=== PATIENT | female | born 1945 | race Caucasian/White ===

== ENCOUNTER → 2016-11-21 | Outpatient (CLI) | payer OTHER ==
[~2016-11-21] MED LIST: ASPIRIN325 PO; BYSTOLIC 5 MG5 M1 PO; CALCIUM 600 +1 EAC1 PO; CRESTOR10 MG PO; LOPRESSOR25 PO; MIRAPEX1 MG PO; MULTIVITAMIN W1 EAC5 PO; MULTIVITAMINS1 EAC7 PO; NEXIUM40 MG PO; NORVASC 5 MG TAB5 MG PO; PRAVASTATIN SOD10 MG PO; RELAFEN500 MG PO
== END ==
LOC: ULTRA 03:49 → RAD 03:49 → BC 03:49
DX: N63 Unspecified lump in breast (principal)

== ENCOUNTER → 2017-02-27 | Outpatient (CLI) | payer OTHER | LOC: RAD 01:34 | DX: R92.2 Inconclusive mammogram (principal) ==

== ENCOUNTER → 2017-08-30 | Outpatient (CLI) | payer OTHER | LOC: ULTRA 08:58 | DX: R92.2 Inconclusive mammogram (principal) ==

== ENCOUNTER → 2019-03-03 | Outpatient (CLI) | payer OTHER | LOC: BC 15:23 | DX: N60.02 Solitary cyst of left breast (principal); N63.10 Unspecified lump in the right breast, unspecified quadrant ==

== ENCOUNTER → 2019-03-07 | Outpatient (CLI) | payer OTHER ==
--- NOTE | 2019-03-11 16:06 | PATH ---
[facility] [address] [place] [address] PATHOLOGY RPT PROCEDURE Name: ZACKERY POSADA Cedrick Room #: REG [facility]..#: [id number] ������������������ Admission: 03/07/19 ������������������ Date of : 45 Discharge: Report #: [id number] Path Case #: [id number] LCA Accession Number: [id number] . 01 Material submitted: . breast - LT BREAST 2:00, 3 CM FN. Modifiers: left, 2:00, 3 CM FN . 01 Clinical history: . Left breast mass . 02 Diagnosis: Breast, left breast 2:00, 3 cm from nipple, needle core biopsy: - Moderate dense chronic inflammation surrounding breast ducts, compatible with mastitis. - Stromal fibrosis associated with macrophages and abundant plasma cells, compatible with reparative changes forming a mass-like lesion measuring approximately 4 mm in greatest dimension in a single core in contiguous length (please see comment). - Background breast tissue showing non-proliferative fibrocystic changes. (IUV:talent development specialist; 03/11/2019) MBR/03/11/2019 . 02 Comment: Examination shows fat necrosis, extravasated red cells, abundant chronic inflammation predominantly comprised of plasma cells in addition to hemosiderin-laden macrophages as well as dense chronic inflammation surrounding the ducts. Findings are consistent with reparative changes. Immunohistochemical stains are performed on block A2 and included CD45, AE1/AE3, E-cadherin, and CD68. The inflammatory process shows reactivity with CD45 and CD68. AE1/AE3 is reactive within the background ducts, and none of these cells within the infiltrate (single cells). E-cadherin is nonreactive within these cells as well. Findings support a reparative process. . Co-review: Dr. Darci Perez. . (IUV:talent development specialist; 03/11/2019) . 02 Electronically signed: . Zaira Melendez MD, Pathologist NPI- [id number] . 01 Gross description: . The specimen is received in formalin, labeled "Zackery Posada, left breast biopsy 2:00 3 cm from nipple". Received are multiple needle cores of fibrofatty tissue measuring 2.2 x 1.8 x 0.3 cm in aggregate dimensions. The specimen is submitted entirely in cassettes A1 through A3. The [address] [address] PATHOLOGY RPT PROCEDURE Name: ZACKERY POSADA Cedrick [facility] [id number] ������������������ Admission: 03/07/19 ������������������ Date of : 45 Discharge: Report #: [id number] Path Case #: [id number] ischemic time is 10 minutes. The total formalin fixation time is 11 hours. (CAA; 03/07/2019) QAC/QAC . 02 Pathologist provided ICD-10: N61.0, N60.32, N60.12 . 02 CPT . 140976, L41503, X35031 Specimen Comment: A courtesy copy of this report has been sent to Specimen Comment: [phone]. Specimen Comment: Report sent to Performed at: [address], [place] [id number] MD Adrian Kat MD Phone: [phone] Performed at: [address] [id number] MD Zaira Melendez MD Phone: [phone]
== END | disposition home or self-care (01) ==
LOC: ULTRA 09:29 → RAD 09:29 → ULTRA 16:22
DX: N60.32 Fibrosclerosis of left breast (principal); R92.0 Mammographic microcalcification found on diagnostic imaging of breast; N61.0 Mastitis without abscess

== ENCOUNTER → 2019-05-07 | Outpatient (CLI) | payer OTHER | LOC: RAD 11:17 | DX: M47.26 Other spondylosis with radiculopathy, lumbar region (principal); M41.86 Other forms of scoliosis, lumbar region; M51.17 Intervertebral disc disorders with radiculopathy, lumbosacral region; M43.8X4 Other specified deforming dorsopathies, thoracic region ==

== ENCOUNTER → 2019-05-19 | Outpatient (CLI) | payer OTHER | LOC: MRI 06:47 | DX: M47.814 Spondylosis without myelopathy or radiculopathy, thoracic region (principal); M51.24 Other intervertebral disc displacement, thoracic region; M50.20 Other cervical disc displacement, unspecified cervical region ==

== ENCOUNTER → 2019-06-26 | Outpatient (CLI) | payer OTHER | LOC: MRI 06-16 10:44 | DX: M47.22 Other spondylosis with radiculopathy, cervical region (principal); M47.26 Other spondylosis with radiculopathy, lumbar region; M25.78 Osteophyte, vertebrae; M12.88 Other specific arthropathies, not elsewhere classified, other specified site; M48.02 Spinal stenosis, cervical region; M51.16 Intervertebral disc disorders with radiculopathy, lumbar region; M48.062 Spinal stenosis, lumbar region with neurogenic claudication; M51.17 Intervertebral disc disorders with radiculopathy, lumbosacral region ==

== ENCOUNTER → 2020-04-30 | Outpatient (CLI) | payer OTHER | LOC: SJCVC 10:22 | PROVIDERS: ATTEND Internal Medicine Cardiovascular Disease | DX: I49.9 Cardiac arrhythmia, unspecified (principal); I10 Essential (primary) hypertension; E78.00 Pure hypercholesterolemia, unspecified; E11.9 Type 2 diabetes mellitus without complications; E78.5 Hyperlipidemia, unspecified; E66.01 Morbid (severe) obesity due to excess calories; Z68.41 Body mass index [BMI] 40.0-44.9, adult; Z79.899 Other long term (current) drug therapy ==

== ENCOUNTER → 2020-05-03 | Outpatient (CLI) | payer OTHER | LOC: SJCVCIMAG 09:58 | PROVIDERS: ATTEND Internal Medicine Cardiovascular Disease | DX: I08.1 Rheumatic disorders of both mitral and tricuspid valves (principal); E66.9 Obesity, unspecified ==

== ENCOUNTER → 2020-05-05 | Outpatient (CLI) | payer OTHER | LOC: SJCVCIMAG 10:20 | PROVIDERS: ATTEND Internal Medicine Cardiovascular Disease | DX: R07.9 Chest pain, unspecified (principal); R06.09 Other forms of dyspnea; I10 Essential (primary) hypertension; E78.00 Pure hypercholesterolemia, unspecified; E11.9 Type 2 diabetes mellitus without complications; E78.5 Hyperlipidemia, unspecified; E66.01 Morbid (severe) obesity due to excess calories; Z68.41 Body mass index [BMI] 40.0-44.9, adult; Z79.899 Other long term (current) drug therapy; Z88.8 Allergy status to other drugs, medicaments and biological substances ==

== ENCOUNTER → 2020-05-24 | Outpatient (CLI) | payer OTHER | LOC: CAT 08:56 | PROVIDERS: ATTEND Neuromusculoskeletal Medicine & OMM | DX: Z13.6 Encounter for screening for cardiovascular disorders (principal); I25.10 Atherosclerotic heart disease of native coronary artery without angina pectoris; E78.00 Pure hypercholesterolemia, unspecified ==

== ENCOUNTER → 2020-06-03 | Outpatient (CLI) | payer OTHER ==
[~2020-06-03] MED LIST changes: +ASPIR 8181 MG PO; +BRILINTA90 MG PO; +LIPITOR40 MG PO; +NEURONTIN 300M300 M2 PO
== END ==
LOC: SJCVC 13:06
PROVIDERS: ATTEND Internal Medicine Cardiovascular Disease
DX: I49.9 Cardiac arrhythmia, unspecified (principal); I10 Essential (primary) hypertension; E78.00 Pure hypercholesterolemia, unspecified; R60.9 Edema, unspecified; I25.10 Atherosclerotic heart disease of native coronary artery without angina pectoris; E11.9 Type 2 diabetes mellitus without complications; Z79.899 Other long term (current) drug therapy

== ENCOUNTER 2020-06-08 06:35 | Observation (INO) | payer OTHER ==
[2020-06-08] VITALS (14 sets, daily range): BP systolic 111–158; BP diastolic 35–70
[~2020-06-08] VITALS: Ht 165.1 cm; Wt 117.9 kg
[~2020-06-08 06:35] MED LIST changes: -ASPIR 8181 MG PO; -BRILINTA90 MG PO; -LIPITOR40 MG PO; -NEURONTIN 300M300 M2 PO
[2020-06-08 07:37] LABS: HEMATOCRIT 39.4 % (37.0-47.0); HEMOGLOBIN 13.1 gm/dL (12.0-15.0); MCH 31.4 pg (26.0-34.0); MCHC 33.2 g/dL (28.0-37.0); MCV 94.5 fL (80.0-100.0); RBC 4.16 mil/uL (4.20-5.00); RDW 14.5 % (10.5-14.5); WBC 6.3 thou/uL (4.0-11.0)
[2020-06-08 08:31] LABS: CREATININE 0.9 mg/dL (0.6-1.0); POTASSIUM 3.9 mmol/L (3.5-5.1)
--- NOTE | 2020-06-08 12:46 | NUR ---
PT ARRIVED FROM SUPERVISOR CORDUROY CUTTING BY CATH STAFF. R RADIAL WITH PRESSURE DRESSING. RELEASING PRESSURE PER PROTOTCOL. TELE MONITOR PUT ON. POST CATH VSS INITIATED. PT UP AD CRYS TOLERATING WELL. DENIES PAIN. WILL MONITOR. TELE STRIP PRINTED AND DOCUMENTED.
--- NOTE | 2020-06-08 14:01 | EKG ---
[facility] [address] [place] [address] ELECTROCARDIOGRAM REPORT Name: ZACKERY WALTON Room #: 204-P [facility] M.R.#: [id number] Admission: 06/08/20 Attend Phys: Del Tao MD Discharge: Date of : 45 Report #: [id number] THIS REPORT FOR: cc: Rolando Louis,Ludwin Samano MD [facility] ~ THIS REPORT FOR: //name// [facility] Test Date: 2020-06-08 Test Time: 11:20:00 Pat Name: ZACKERY WALTON Department: Room: 204 Gender: F Community Service Worker: ANGELO : 1945 Requested By: Del Tao Order Number: [id number] MD: Ludwni Ventura Measurements Intervals [place] Rate: 60 P: 49 DC: 185 QRS: 27 QRSD: 92 T: -28 QT: 428 QTc: 428 Interpretive Statements Sinus arrhythmia ST segment abnormality Compared to ECG 03/31/2016 07:59:32 ST segment abnormality is now present Atrial premature complex(es) no longer present Electronically Signed On 06-08-2020 14:01:03 CDT by Ludwin Ventura [email or web address] <ELECTRONICALLY SIGNED> By: Ludwin Ventura MD, [facility] 06/08/20 1401 1120 1120 Ludwin Ventura MD, [facility] /EPI
--- NOTE | 2020-06-08 14:24 | CATHLAB ---
[facility] [address] [place] [address] INVASIVE PROCEDURE REPORT Name: ZACKERY WALTON Room #: 204-P [facility] M.R.#: [id number] Admission: 06/08/20 Attend Phys: Del Tao MD Discharge: Date of : 45 Report #: [id number] THIS REPORT FOR: cc: Rolando Louis Steven F. DO Park, Jin S. MD ~ APPROVED REPORT Study performed: 06/08/2020 08:42:56 Patient Details The patient is a 75 year-old female Event Personnel Del Tao Software Test Specialist, Sanjeev Valdivia RN RN, Eliecer Byrd RTR CelsaubShanta Jordan RTR Monitor, Siobhan Finnegan RN RN, Zakiya Maria RTR, SUPERINTENDENT LOGGING Monitor Procedures Performed Art Access - R radial artery ANIA Place w/wo Plasty Single DIAG 694077 80105 Initial Mod Sed Same Phys/QHP Gr 097155 28195 Mod Sed Same Phys/QHP Ea 528793 Hemostasis with Hemoband Indication Dyspnea, Unstable angina , Chest pain Risk Factors Hypercholesterolemia, Coronary Artery DiseaseHypertension Procedure Narrative The Right Wrist^ was infiltrated with 1% Lidocaine subcutaneous anesthesia. A TRANSRADIAL SLENDER 6F GLIDESHEATH KIT #[id number] sheath was inserted into the Right Radial Artery^. Coronary angiography was performed using coronary diagnostic catheters. The right coronary system was accessed and visualized with a 5FR JR 4 #[id number] catheter. The left coronary system was accessed and visualized with a 5FR JL 3.5 #190041 catheter. The left ventricle was accessed and visualized with a 5FR JR 4 #[id number] catheter. Closure device was deployed with a Fr VASC BAND L 27CM #[id number]. The patient tolerated the procedure well and there were no complications associated with the procedure. There was no hematoma. Intraoperative Conscious Sedation Sedation start time: 849 Case end Time: [facility] [address] [place] [address] INVASIVE PROCEDURE REPORT Name: ZACKERY WALTON ANN Room #: 204-P [facility] IN .R.#: [id number] Admission: 06/08/20 Attend Phys: Del Tao MD Discharge: Date of : 45 Report #: [id number] Fentanyl 75 mcg Versed 1.5 mg Fluoro Time: 24.90 minutes Dose: DAP 32218.90 cGycm2 7569 mGy Contrast Type and Amount: Visipaque 310 ml Coronary Angiography The patient's coronary anatomy is right dominant. Diagnostic Cath Left Main The left main artery is a large-caliber vessel, with no flow-limiting lesions. LAD The LAD has a severe stenosis in the proximal/mid segment, 80% with calcifications. After the stenosis, the remaining segments of the LAD is widely patent. Diagonal 1 There is a small to moderate-sized caliber vessel, with no flow-limiting lesions. Diagonal 2 This is a larger vessel than the first diagonal artery and has a severe occlusion in the proximal segment. Circumflex Supplies 1 moderate-sized OM vessel. OM1 This is a moderate-sized vessel with mild disease proximally. Supplies several branches as it travels down the lateral wall. Right Coronary This is a dominant vessel with mild diffuse disease in the midsegment, 30%. R PDA This is a patent vessel, with no flow-limiting lesions. RPLV This is a patent vessel, with no flow-limiting lesions. Left Ventriculography Left Ventriculography was not performed. Ejection Fraction was 55-60% based off patient's Nuclear Cardiac Stress Test. An LVEDP was measured and there is no gradient across the outflow tract. Hemodynamics The aortic pressure is 117/54 mmHg with a mean of 80 mmHg. The left ventricular pressure is 112/3 mmHg with a mean of mmHg. The left ventricular end diastolic pressure is 12 mmHg. PCI Technique Lesion Percutaneous coronary intervention was performed on the Proximal/mid left anterior descending artery segment. The lesion stenosis prior to intervention was 80% with BRIGIDA 3 flow. A VISTA 6FR XB 3.5 #[id number] Guide Catheter was used to engage the ostium. A Luge Wire .014 x 182CM #[id number] Interventional Guidewire was used to cross the [facility] [address] [place] [address] INVASIVE PROCEDURE REPORT Name: ZACKERY WALTON Room #: 204-P ADM IN M.R.#: [id number] Admission: 06/08/20 Attend Phys: Del Tao MD Discharge: Date of : 45 Report #: [id number] lesion. BALLOON DILATION A Balloon catheter TREK NC RX 2.5 X 12 #[id number] was inserted and inflated up to 4.00atm for 7seconds. Additional Inflation: 14.00atm for 13seconds. Additional Inflation: 14.00atm for 14seconds. Additional inflation 16 eliza for 18 sec. Additional balloon NC Euphora 2.75mm x 15mm was inflated 16 eliza for 18 sec, additional inflation 14 eliza for 15 sec. STENT DEPLOYMENT A stent RESOLUTE RICARDO RX 3.0 X 30 #[id number] was inserted and inflated up to 12.00atm for 22seconds. POST STENT DEPLOYMENT BALLOON DILATION A Balloon catheter TREK NC RX 3.0 X 15 #[id number] was inserted and inflated up to 18.00atm for 14seconds. Additional Inflation: 18.00atm for 18seconds. Additional Inflation: 18.00atm for 11seconds. Final angiography reveals 5 % stenosis with BRIGIDA 3 flow. PCI Technique Lesion 2 Percutaneous Coronary Intervention was performed on the second diagnonal branch segment. The lesion stenosis prior to intervention was 90% with BRIGIDA 3 flow. A VISTA 6FR XB 3.5 #020683 Guide Catheter was used to engage the ostium. A Luge Wire .014 x 182CM #773322 Interventional Guidewire was used to cross the lesion. Balloon Dilation A Balloon catheter TREK NC RX 2.5 X 12 #[id number] was inserted and inflated up to 4.00atm for 7seconds. Additional Inflation: 4.00atm for 6seconds. Additional Inflation: 10.00atm for 20seconds. Additional inflations of 14 eliza for 16 sec, then 14 eliza for 12 sec. Stent Deployment A stent RESOLUTE RICARDO RX 2.5 X 15 #[id number] was inserted and inflated up to 14.00atm for 23seconds. Additional Inflation: 14.00atm for 11seconds. Additional stent Resolute Ricardo 2.5mm x 8mm deployed proximal to first stent. Inflations of 2 eliza for 6 sec, 14 eliza for 23 sec, and 14 eliza for 10 sec. Final angiography reveals 5 % stenosis with BRIGIDA 3 flow. Conclusion [facility] [address] [place] [address] INVASIVE PROCEDURE REPORT Name: ZACKERY WALTON ANN Room #: 204-P ADM IN M.R.#: [id number] Admission: 06/08/20 Attend Phys: Del Tao MD Discharge: Date of : 45 Report #: [id number] 1. Successful insertion of a drug-eluting stent into the proximal/mid LAD segment. 2. Successful insertion of drug-eluting stents into the ostial/proximal second diagonal artery. 3. Mild disease in OM1 and RCA. 4. Normal LV systolic function. 5. Recommend dual antiplatelet therapy and aggressive risk factor management. Recommendations Daily ASA with Plavix for at least one year <ELECTRONICALLY SIGNED> By: Del Tao MD 06/08/20 1424 1424 1424 Dle Tao MD /INF
[2020-06-08] MEDS ORDERED: NEURONTIN 300M300 M2 PO (20:22)
[2020-06-08] MEDS ORDERED: MIRAPEX1 MG PO (20:22)
[2020-06-09 00:15] VITALS: BP 142/62
[2020-06-09 04:34] VITALS: BP 150/58
[2020-06-09 06:04] LABS: CALCIUM 8.5 mg/dL (8.5-10.1); CREATININE 1.1 mg/dL (0.6-1.0); POTASSIUM 3.6 mmol/L (3.5-5.1); TOTAL BILIRUBIN 0.2 mg/dL (0.2-1.0); TOTAL PROTEIN 6.5 g/dL (6.4-8.2)
[2020-06-09 06:06] LABS: HEMATOCRIT 36.2 % (37.0-47.0); MCH 31.7 pg (26.0-34.0); MCHC 33.2 g/dL (28.0-37.0); MCV 95.4 fL (80.0-100.0); RBC 3.8 mil/uL (4.20-5.00); RDW 14.6 % (10.5-14.5); WBC 5.9 thou/uL (4.0-11.0)
[2020-06-09] MEDS ORDERED: LIPITOR40 MG PO (07:17)
[2020-06-09] MEDS ORDERED: BRILINTA90 MG PO (07:17)
[2020-06-09] MEDS ORDERED: ASPIR 8181 MG PO (07:17)
--- NOTE | 2020-06-09 07:41 | NUR ---
ASSUMED PATIENT CARE AT 1845. VITAL SIGNS STABLE WITH PATIENT HAVING NO COMPLAINTS OF PAIN OR NAUSEA. FULLY ORIENTED, PATIENT IS ABLE TO PARTICIPATE IN CARE AND CALL APPROPRIATELY FOR NEEDS. PROCEDURE SITE CLEAN, DRY AND INTACT WITH NO EVIDENCE OF HEMATOMA. PATIENT IS ANXIOUS FOR ANTICIPATED DISCHARGE SOON. CONTINUE PLAN OF CARE.
--- NOTE | 2020-06-09 07:46 | EKG ---
[facility] [address] [facility] [place] [address] ELECTROCARDIOGRAM REPORT Name: ZACKERY WALTON Room #: 204-P [facility] M.R.#: [id number] Admission: 06/08/20 Attend Phys: Del Tao MD Discharge: Date of : 45 Report #: [id number] THIS REPORT FOR: cc: Rolando Louis,Ludwin Samano MD [facility] ~ THIS REPORT FOR: //name// [facility] Test Date: 2020-06-09 Test Time: 06:58:32 Pat Name: ZACKERY WALTON Department: Room: 204 Gender: F Unit Clerk: ANGELO : 1945 Requested By: Del Tao Order Number: [id number] MD: Ludwin Ventura Measurements Intervals [place] Rate: 51 P: 47 MT: 168 QRS: 39 QRSD: 92 T: 9 QT: 452 QTc: 417 Interpretive Statements Sinus bradycardia Atrial premature complex Compared to ECG 06/08/2020 11:20:00 Atrial premature complex(es) now present ST (T wave) deviation no longer present Electronically Signed On 06-09-2020 7:46:03 CDT by Ludwin Ventura [email or web address] <ELECTRONICALLY SIGNED> By: Ludwin Ventura MD, [facility] 06/09/20 0746 Ludwin Ventura MD, [facility] /EPI
[2020-06-09 08:00] VITALS: BP 131/50
[2020-06-09] MEDS ORDERED: NEXIUM40 MG PO (08:27)
[2020-06-09] MEDS ORDERED: CALCIUM 600 +1 EAC1 PO (08:27)
--- NOTE | 2020-06-09 10:12 | NUR ---
ASSUMMED PT CARE AT APPROXIMATELY 0700. PT A&O X4. ASSESSMENT CHARTED. FALL PRECAUTIONS IN PLACE. PT DENIES HAVING CHEST PAIN. PT DENIES HAVING SOB. PT DENIES HAVING ACUTE PAIN. PT DISCHARGING HOME C SELF CARE. IV DC. TELE DC. R RADIAL SITE C/D/I. NO HEMATOMA. VITAL SIGNS STABLE. PT RECEIVED DISCHARGE EDUCATION. PT STATED UNDERSTANDING AND DENIED HAVING FURTHER QUESTIONS. PT RECEIVING HOSPITAL TRANSPORT OFF UNIT. PT AMBULATES STEADY/INDEPENDENT. PT COMFORTABLE. PT DENIES HAVING FURTHER CONCERNS.
[2020-06-09 10:24] VITALS: BP 131/50
== END 2020-06-09 11:09 | disposition home or self-care (01) ==
LOC: CATH 06:35 → 2N 12:33 → CATH 16:03 → 2N 06-09 11:09
PROVIDERS: ADMIT Internal Medicine Cardiovascular Disease; ATTEND Internal Medicine Cardiovascular Disease
DX: I25.110 Atherosclerotic heart disease of native coronary artery with unstable angina pectoris (principal); I10 Essential (primary) hypertension; E78.00 Pure hypercholesterolemia, unspecified

== ENCOUNTER → 2020-06-16 | Outpatient (CLI) | payer OTHER ==
[~2020-06-16] MED LIST changes: +ASPIR 8181 MG PO; +BRILINTA90 MG PO; +LIPITOR40 MG PO; +NEURONTIN 300M300 M2 PO
== END ==
LOC: SJCVC 11:20
PROVIDERS: ATTEND Internal Medicine Cardiovascular Disease
DX: I25.10 Atherosclerotic heart disease of native coronary artery without angina pectoris (principal); R94.31 Abnormal electrocardiogram [ECG] [EKG]; E78.00 Pure hypercholesterolemia, unspecified; I10 Essential (primary) hypertension; Z79.899 Other long term (current) drug therapy

== ENCOUNTER → 2020-08-04 | Outpatient (CLI) | payer OTHER | LOC: SJCVC 09:59 | PROVIDERS: ATTEND Internal Medicine Cardiovascular Disease | DX: R94.31 Abnormal electrocardiogram [ECG] [EKG] (principal); I25.10 Atherosclerotic heart disease of native coronary artery without angina pectoris; I10 Essential (primary) hypertension; E78.00 Pure hypercholesterolemia, unspecified; R60.9 Edema, unspecified; E11.9 Type 2 diabetes mellitus without complications; E78.5 Hyperlipidemia, unspecified; E66.01 Morbid (severe) obesity due to excess calories; Z68.41 Body mass index [BMI] 40.0-44.9, adult; Z98.61 Coronary angioplasty status; Z79.899 Other long term (current) drug therapy ==

== ENCOUNTER 2020-11-08 17:55 | Inpatient (IN) | payer OTHER ==
[~2020-11-08] VITALS: Ht 165.1 cm; Wt 114.1 kg
[2020-11-08 19:30] VITALS: BP 150/57
[2020-11-08] MEDS ORDERED: HYDROCHLOROTHIA25 M2 PO ×2 (19:55)
[2020-11-08] MEDS ORDERED: EFFIENT10 MG PO ×2 (19:56)
[2020-11-08] MEDS ORDERED: REPATHA SU140 MG/1 M SQ ×2 (19:59)
[2020-11-08] MEDS ORDERED: TOPROL XL25 MG PO ×2 (21:29)
[2020-11-08] MEDS ORDERED: MIRAPEX0.75 MG PO ×2 (21:31)
[2020-11-08] MEDS ORDERED: MIRAPEX1.5 MG PO ×2 (21:33)
[2020-11-08 23:24] VITALS: BP 164/61
[2020-11-09] VITALS (7 sets, daily range): BP systolic 120–145; BP diastolic 53–80
--- NOTE | 2020-11-09 03:29 | NUR ---
PT DIRECT TRANSFER FROM [facility]. ARRIVED ABOUT 2200. PT ALERT AND ORIENTED. RATES CHEST PAIN 0 - 2/10. INITIAL VITALS STABLE. DATA TYPIST MODEL AND MOLD MAKER PLASTER NOTIFIED OF PATIENT ARRIVAL. ADMISSION AND ASSESSMENT COMPLETED. PT DENIES SOB, NAUSEA OR VOMITING. NITRO PASTE APPLIED. NO CHEST PAIN REPORTED. CONSENT FORMS SIGNED. WILL CONTINUE TO MONITOR PT AND FOLLOW POC.
[2020-11-09 05:21] LABS: TROPONIN-I 0.1 ng/mL (<0.06)
--- NOTE | 2020-11-09 07:17 | EKG ---
[address] [place] [address] ELECTROCARDIOGRAM REPORT Name: ZACKERY WALTON ANN Room #: 206-P ADM IN M.R.#: [id number] Admission: 11/08/20 Attend Phys: Luis Dow MD Discharge: Date of : 45 Report #: [id number] [facility] Test Date: 2020-11-09 Test Time: 06:59:36 Pat Name: ZACKERY WALTON Department: Room: 206 P Gender: F Band Cutter: ANGELO : 1945 Requested By: Alanis Pérez Order Number: [id number] : Shlomo Odonnell Measurements Intervals [place] Rate: 66 P: 34 WV: 155 QRS: -2 QRSD: 92 T: 27 QT: 407 QTc: 427 Interpretive Statements Sinus rhythm Compared to ECG 06/09/2020 06:58:32 Sinus bradycardia no longer present Atrial premature complex(es) no longer present Electronically Signed On 11-09-2020 7:17:45 APPLICATION SUPPORT LEAD by Shlomo Odonnell [email or web address] <ELECTRONICALLY SIGNED> By: Shlomo Odonnell MD, [facility] 11/09/20 0717 D: 12/658 Shlomo Odonnell MD, FACC /EPI
--- NOTE | 2020-11-09 17:55 | NUR ---
PT HAD CARDIAC CATH THIS AM. VSS POST PROCEDURE. R GROIN CLEAN, DRY, INTACT. NO HEMATOMA NOTED. DENIED HAVING ANY CHEST PAIN. PT'S SON AT BEDSIDE NO CONCERNS AT TIME. PROGRESSING WELL TOWARDS DISCHARGE GOAL.
--- NOTE | 2020-11-10 03:16 | NUR ---
ASSUMED PATIENT CARE AT 1845. VITAL SIGNS STABLE WITH PATIENT HAVING NO COMPLAINTS OF PAIN OR NAUSEA. FULLY ORIENTED, PATIENT IS ABLE TO PARTICIPATE IN CARE AND CALL APPROPRIATELY FOR NEEDS. PATIENT HAVING NO CARDIAC RELATED PAIN OR SIGNS AND SYMPTOMS CARDIAC DISTURBANCE. GROIN CATH SITE CLEAN, DRY, AND INTACT WITH NO EVIDENCE OF HEMATOMA. PATIENT IS ANXIOUS FOR EXPECTED DISCHARGE LATER TODAY. CONTINUE PLAN OF CARE.
[2020-11-10 04:00] VITALS: BP 146/47
[2020-11-10 05:08] LABS: HEMATOCRIT 34.7 % (37.0-47.0); HEMOGLOBIN 11.4 gm/dL (12.0-15.0); MCH 30.6 pg (26.0-34.0); MCHC 32.9 g/dL (28.0-37.0); RBC 3.73 mil/uL (4.20-5.00); WBC 6.4 thou/uL (4.0-11.0)
[2020-11-10 05:24] LABS: TOTAL BILIRUBIN 0.4 mg/dL (0.2-1.0); TOTAL PROTEIN 6.6 g/dL (6.4-8.2); TROPONIN-I 0.19 ng/mL (<0.06)
--- NOTE | 2020-11-10 07:19 | EKG ---
[address] [address] ELECTROCARDIOGRAM REPORT Name: ZACKERY WALTON ANN Room #: 206-P ADM IN M.R.#: [id number] Admission: 11/08/20 Attend Phys: Luis Dow MD Discharge: Date of : 45 Report #: [id number] Test Date: 2020-11-10 Test Time: 07:12:50 Pat Name: ZACKERY WALTON Department: Room: 206 P Gender: F [employer] Group Leader: ANGELO : 1945 Requested By: Yuval Segura Order Number: [id number] : Shlomo Odonnell Measurements Intervals [place] Rate: 61 P: 39 [place]: 169 QRS: 7 QRSD: 90 T: 8 QT: 420 QTc: 423 Interpretive Statements Sinus rhythm Atrial premature complexes Compared to ECG 11/09/2020 06:59:36 Atrial premature complex(es) now present Electronically Signed On 11-10-2020 7:19:40 TABLE GAMES DUAL RATE SUPERVISOR by Shlomo Odonnell [email or web address] <ELECTRONICALLY SIGNED> By: Shlomo Odonnell MD, [facility] 11/10/20718 1 1 Shlomo Odonnell MD, FACC /EPI
[2020-11-10 07:32] VITALS: BP 160/77
[2020-11-10 10:17] VITALS: BP 160/77
--- NOTE | 2020-11-10 11:33 | NUR ---
PT HAD CARDIAC CATH ON 11/09/2020. NO HEMATOMA, SITE CLEAN, DRY, AND INTACT. PT DENIES CHEST PAIN, DENIES SHORTNESS OF BREATH. DISCHARGE EDUCATION CONDUCTED AT THE BEDSIDE ON POST CATH CARE, MEDICATIONS, AND FOLLOW UP. PT WAS DISCHARGED TO HOME, WITH SON, VIA CAR.
--- NOTE | 2020-11-10 12:06 | CATHLAB ---
[facility] [address] [place] [address] INVASIVE PROCEDURE REPORT Name: ZACKERY WALTON Room #: 206-P DIS IN M.R.#: [id number] Admission: 11/08/20 Attend Phys: Luis Dow MD Discharge: 11/10/20 Date of : 45 Report #: [id number] THIS REPORT FOR: cc: Rolando Louis Steven F. DO Mancuso, Gerald M. MD [facility] ~ APPROVED REPORT Study performed: 11/09/2020 10:02:26 Patient Details Patient Status: In-Patient Room #: 206 The patient is a 75 year-old female Event Personnel Yuval Segura Woodworking Machine Operator, Caity Bojorquez RTR Monitor, Jose Sandoval RN, Eliecer Byrd RTR Scrub, Troy Womack RTR Kinesiotherapist Procedures Performed Art Access - R femoral artery* Left Heart Cath w/or w/o Coronaries [id number] [facility] Aortogram Abdominal Peripheral Angio 712621 ANIA Place w/wo Plasty Single LAD 334617 Hemostasis w/ Mynx 73514 Initial Mod Sed Same Phys/QHP Gr5y 988410 88590 Mod Sed Same Phys/QHP Ea 046098 Procedure Narrative The Right Groin^ was infiltrated with 1% Lidocaine subcutaneous anesthesia. A PINNACLE 6FR Sheath #149880 sheath was inserted into the RFA^. Coronary angiography was performed using coronary diagnostic catheters. The right coronary system was accessed and visualized with a JR4 catheter. The left coronary system was accessed and visualized with a JL3.5 catheter. The left ventricle was accessed and visualized with a PIGTAIL catheter. Left ventriculogram was performed in 30 degree projection. An aortogram of the abdominal aorta was performed. Closure device was deployed with a Fr MYNXGRIP 6/7F #[id number]. The patient tolerated the procedure well and there were no complications associated with the procedure. There was no hematoma. Intraoperative Conscious Sedation Sedation start time: 10:57 Case end Time: 11:49 Fentanyl 100 mcg Versed [address] [address] INVASIVE PROCEDURE REPORT Name: ZACKERY WALTON ANN Room #: 206-[facility]..#: [id number] Admission: 11/08/20 Attend Phys: Luis Dow MD Discharge: 11/10/20 Date of : 45 Report #: [id number] Fluoro Time: 7.06 minutes Dose: DAP 04156.90 cGycm2 1595 mGy Contrast Type and Amount: Omnipaque 215 ml Hemodynamics The aortic pressure is 140/65 mmHg with a mean of 103 mmHg. The left ventricular pressure is 149/2 mmHg with a mean of mmHg. The left ventricular end diastolic pressure is 24 mmHg. PCI Technique Lesion Percutaneous coronary intervention was performed on the proximal left anterior descending artery segment. A LAUNCHER 6FR EBU 3.75 #378522 Guide Catheter was used to engage the ostium. A Luge Wire .014 x 182CM #306326 Interventional Guidewire was used to cross the lesion. BALLOON DILATION A Balloon catheter Sprinter OTW 2.5 x 15 #[id number] was inserted and inflated up to 14.00atm for 26seconds. Additional Inflation: 14.00atm for 24seconds. STENT DEPLOYMENT A drug-eluting stent RESOLUTE RICARDO OTW 3.0 X 12 #[id number] was inserted and inflated up to 15.00atm for 23seconds. Additional Inflation: 18.00atm for 16seconds. POST STENT DEPLOYMENT BALLOON DILATION A Balloon catheter TREK NC OTW 3.25 X 12 #[id number] was inserted and inflated up to 18.00atm for 23seconds. Additional Inflation: 20.00atm for 19seconds. Additional Inflation: 20.00atm for 20seconds. Conclusion #1. Successful PTCA stent of a subtotal proximal LAD placement of a 3.0 x 12 resolute Ricardo stent postdilated to 3.41. This extended slightly into the previously placed proximal LAD stent. BRIGIDA grade III flow. #2 diagonal branch off of this LAD recently stented remains widely patent. #3 left main mild disease giving rise to the LAD and circumflex #4 large nondominant circumflex system with mild disease. #5 dominant right coronary artery with an eccentric 30% proximal lesion 50% mid vessel lesion giving rise to PDA DAVID. #6 normal left jugular size and systolic function EF 60 to 65% #7 abdominal aorta gram is intact with no evidence of aneurysm single [facility] [place] [address] INVASIVE PROCEDURE REPORT Name: ZACKERY WALTON ANN Room #: 206-P DIS IN M.R.#: [id number] Admission: 11/08/20 Attend Phys: Luis Dow MD Discharge: 11/10/20 Date of : 45 Report #: [id number] bilateral renal arteries widely patent. Recommendations and plan: Continue aggressive risk factor modification. Dual antiplatelet therapy and will continue. Patient transferred to CCU in stable condition to follow post coronary stent protocol. <ELECTRONICALLY SIGNED> By: Yuval Segura MD, FACC 11/10/20 1206 05 120 Yuval Segura MD, FACC /INF
== END 2020-11-10 11:36 | disposition home or self-care (01) | DRG 246 ==
LOC: 2N 17:55
PROVIDERS: Internal Medicine Cardiovascular Disease; Nurse Practitioner Family; ADMIT Hospitalist; ATTEND Hospitalist
PROC: B2151ZZ Fluoroscopy of Left Heart using Low Osmolar Contrast (ICD-10-PCS; principal; 2020-11-09)
PROC: B2111ZZ Fluoroscopy of Multiple Coronary Arteries using Low Osmolar Contrast (ICD-10-PCS; principal; 2020-11-09)
PROC: 027034Z Dilation of Coronary Artery, One Artery with Drug-eluting Intraluminal Device, Percutaneous Approach (ICD-10-PCS; principal; 2020-11-09)
PROC: B4101ZZ Fluoroscopy of Abdominal Aorta using Low Osmolar Contrast (ICD-10-PCS; principal; 2020-11-09)
PROC: 4A023N7 Measurement of Cardiac Sampling and Pressure, Left Heart, Percutaneous Approach (ICD-10-PCS; principal; 2020-11-09)
DX: I25.10 Atherosclerotic heart disease of native coronary artery without angina pectoris (principal); I50.31 Acute diastolic (congestive) heart failure; I10 Essential (primary) hypertension; E78.5 Hyperlipidemia, unspecified; K21.9 Gastro-esophageal reflux disease without esophagitis; E78.00 Pure hypercholesterolemia, unspecified; G51.0 Bell's palsy; G25.81 Restless legs syndrome; Z96.651 Presence of right artificial knee joint; Z88.6 Allergy status to analgesic agent; Z88.8 Allergy status to other drugs, medicaments and biological substances; Z90.710 Acquired absence of both cervix and uterus; Z82.3 Family history of stroke; Z80.1 Family history of malignant neoplasm of trachea, bronchus and lung; Z95.5 Presence of coronary angioplasty implant and graft; Z82.49 Family history of ischemic heart disease and other diseases of the circulatory system; Z79.82 Long term (current) use of aspirin; Z79.899 Other long term (current) drug therapy
CPT/HCPCS: 10081

== ENCOUNTER → 2020-11-16 | Outpatient (CLI) | payer OTHER ==
[~2020-11-16] MED LIST changes: +EFFIENT10 MG PO; +HYDROCHLOROTHIA25 M2 PO; +MIRAPEX0.75 MG PO; +MIRAPEX1.5 MG PO; +REPATHA SU140 MG/1 M SQ; +TOPROL XL25 MG PO
== END ==
LOC: SJCVCIMAG 09:35
PROVIDERS: ATTEND Internal Medicine Cardiovascular Disease
DX: R10.31 Right lower quadrant pain (principal); M79.604 Pain in right leg; R19.09 Other intra-abdominal and pelvic swelling, mass and lump; L98.8 Other specified disorders of the skin and subcutaneous tissue; Z79.899 Other long term (current) drug therapy

== ENCOUNTER → 2020-11-23 | Outpatient (CLI) | payer OTHER | LOC: SJCVC 14:30 | PROVIDERS: ATTEND Internal Medicine Cardiovascular Disease | DX: I25.10 Atherosclerotic heart disease of native coronary artery without angina pectoris (principal); I10 Essential (primary) hypertension; E78.00 Pure hypercholesterolemia, unspecified; E66.01 Morbid (severe) obesity due to excess calories; R60.9 Edema, unspecified; R19.09 Other intra-abdominal and pelvic swelling, mass and lump; R10.31 Right lower quadrant pain; Z98.41 Cataract extraction status, right eye; Z98.61 Coronary angioplasty status; Z79.899 Other long term (current) drug therapy; Z72.89 Other problems related to lifestyle; Z88.1 Allergy status to other antibiotic agents; Z88.5 Allergy status to narcotic agent; Z88.8 Allergy status to other drugs, medicaments and biological substances ==

== ENCOUNTER → 2021-02-22 | Outpatient (CLI) | payer OTHER | LOC: SJCVC 08:41 | PROVIDERS: ATTEND Internal Medicine Cardiovascular Disease | DX: E78.00 Pure hypercholesterolemia, unspecified (principal); E11.9 Type 2 diabetes mellitus without complications; I25.10 Atherosclerotic heart disease of native coronary artery without angina pectoris; E78.5 Hyperlipidemia, unspecified; I10 Essential (primary) hypertension; Z95.5 Presence of coronary angioplasty implant and graft; Z88.5 Allergy status to narcotic agent; Z88.8 Allergy status to other drugs, medicaments and biological substances; Z72.89 Other problems related to lifestyle; Z79.899 Other long term (current) drug therapy ==

== ENCOUNTER → 2021-03-04 | Outpatient (CLI) | payer OTHER | LOC: SJCVC 09:28 | PROVIDERS: ATTEND Internal Medicine Cardiovascular Disease | DX: I49.1 Atrial premature depolarization (principal); I25.10 Atherosclerotic heart disease of native coronary artery without angina pectoris; I10 Essential (primary) hypertension; E78.00 Pure hypercholesterolemia, unspecified; E66.01 Morbid (severe) obesity due to excess calories; R60.9 Edema, unspecified; E78.5 Hyperlipidemia, unspecified; E11.9 Type 2 diabetes mellitus without complications; Z68.41 Body mass index [BMI] 40.0-44.9, adult; Z79.899 Other long term (current) drug therapy ==

== ENCOUNTER → 2021-04-06 | Outpatient (CLI) | payer OTHER | LOC: RAD 09:32 | PROVIDERS: ATTEND Neuromusculoskeletal Medicine & OMM | DX: Z12.31 Encounter for screening mammogram for malignant neoplasm of breast (principal) ==

== ENCOUNTER → 2021-04-08 | Outpatient (CLI) | payer OTHER | LOC: BC 10:36 | PROVIDERS: ATTEND Neuromusculoskeletal Medicine & OMM | DX: N63.23 Unspecified lump in the left breast, lower outer quadrant (principal); N63.13 Unspecified lump in the right breast, lower outer quadrant ==

== ENCOUNTER → 2021-04-14 | Outpatient (CLI) | payer OTHER ==
--- NOTE | 2021-04-19 11:06 | PATH ---
[facility] [address] [place] [address] PATHOLOGY RPT PROCEDURE Name: ZACKERY POSADA ANN Room #: REG [facility] M.R.#: [id number] Admission: 04/14/21 Date of : 45 Discharge: Report #: [id number] Path Case #: [id number] [facility] Accession Number: [id number] . 01 Material submitted: . PART A: breast - LEFT CENTRAL BREAST NODULES WITH CALCIFICATIONS BENIGN APPEARING. Modifiers: left, central PART B: breast - RIGHT BREAST NODULES WITH CALCIFICATIONS BENIGN APPEARING. Modifiers: right, anterior, lateral . 01 Clinical history: . BILATERAL BREAST NODULES WITH CALCIFICATIONS BENIGN APPEARING NODULES OF INTEREST FOR A- IN FORMLAIN 1229 FOR B- IN FORMALIN 1249 . 02 Diagnosis: A. Breast, left central, stereotactic needle core biopsy: - Fat necrosis, macrophages, inflammation as well as coarse calcifications compatible with reparative changes. - Negative for hyperplasia, atypia or malignancy. . B. Breast, right breast anterior lateral, stereotactic needle core biopsy: - Fat necrosis, macrophages, inflammation as well as coarse calcifications compatible with reparative changes. - Negative for hyperplasia, atypia or malignancy. . (IUV:mml; 04/15/2021) QLM 04/15/2021 1521 Local . 02 Comment: Multiple properly-controlled immunohistochemical stains are performed on blocks A4 and B1: . ER (A4 and B1) - Patchy reactivity present AE1/AE3 (A4 and B1) - No reactivity within the focus of inflammatory/reparative changes CK5/6 (A4 and B1) - Mosaic pattern identified CD68 (A4 and B1) - Numerous macrophages within the nodules of interest . Dr. Jo Okeefe has seen territory service representative slides and concurs with my diagnosis. . (IUV:mml; 04/15/2021) . [address] [address] PATHOLOGY RPT PROCEDURE Name: ZACKERY POSADA ANN Room #: REG CLI Ana#: [id number] Admission: 04/14/21 Date of : 45 Discharge: Report #: [id number] Path Case #: [id number] Electronically signed: . Zaira Melendez MD, Pathologist NPI- [id number] . 01 Gross description: . A. The specimen is received in formalin, labeled "Zackery Posada, left breast biopsy" received as multiple soft fernandes-yellow tissue cores measuring up to 1.6 cm x 0.2 cm. The specimen is entirely submitted A1-A4 (tissue in the white cassette in A1). The specimen is removed from the patient at 1200 hours and placed in formalin at 1229 hours on March. The specimen is removed from formalin at 11:30pm. The specimen is in formalin for greater than 6 hours and less than 72 hours. . B. The specimen is received in formalin, labeled "Zackery Posada, right breast biopsy" received as multiple soft fernandes-yellow tissue cores measuring up to 1.7 cm x 0.2 cm. The specimen is entirely submitted in B1-B3 (tissue from white cassette in B1). The specimen is removed from the patient at 1239 hours and placed in formalin at 1249 hours on March. The specimen is removed from formalin at 11:30pm. The specimen is in formalin for greater than 6 hours and less than 72 hours. ([facility]; 04/14/2021) KENAN/KENAN 04/14/2021 [facility] Local . 02 Pathologist provided ICD-10: N61.0, N64.1 . 02 CPT . 195366, 246541, B06641, B65876 Specimen Comment: A courtesy copy of this report has been sent to [phone], [phone] Specimen Comment: [phone], Specimen Comment: Report sent to ,DR TANNER / DR CHATMAN Performed at: [address] [facility] [address], [place], [place] [id number] MD Joshua Phillips MD Phone: [phone] Performed at: [address] [facility] [address] [id number] MD Zaira Melendez MD Phone: [phone]
== END | disposition home or self-care (01) ==
LOC: RAD 10:55
PROVIDERS: ATTEND Radiology Diagnostic Radiology
DX: R92.1 Mammographic calcification found on diagnostic imaging of breast (principal); N61.0 Mastitis without abscess; N64.1 Fat necrosis of breast; Z79.899 Other long term (current) drug therapy; Z88.8 Allergy status to other drugs, medicaments and biological substances

== ENCOUNTER → 2021-06-14 | Outpatient (CLI) | payer OTHER ==
[~2021-06-14] VITALS: Ht 320 cm; Wt 108.9 kg
[~2021-06-14] MED LIST changes: +NORVASC5 MG PO; +OMEPRAZOLE40 MG PO
[2021-06-14 12:56] VITALS: BP 139/78
--- NOTE | 2021-06-14 13:05 | NUR ---
Pain Clinic Assessment: 1. History of Osteoarthritis: Left Lower Extremity Right Lower Extremity SPINE History of Rheumatoid Arthritis: 2. Height: 5 ft. 66 in. 320.0 cm. Weight: 240.0 lb. oz. 108.864 kg. Patient's BMI: 10.6 3. Vital Signs: BP: 139/78 Pulse: 64 Resp: 16 Temp: 02 Sat: 97 ECG Mon: 4. Pain Intensity: 5-6 5. Fall Risk: Dizziness: N Needs help standing or walking: N Fallen in the last 3 months: N Fall risk comments: 6. Patient on Blood Thinner: EFFIENT 7. History of Hypertension: Y 8. Opioid Therapy greater than 6 weeks: N Opiate Contract Signed: 9. Risk Assessment Tool Provided: LOW 10. Functional Assessment Tool: 11. Recreational Drug Use: Never Drug Type: Tobacco Use: Never Smoker Tobacco Type: Amount or Packs/day: How Many Years: Alcohol Use: Yes Frequency: Weekly Quant: 2-3
--- NOTE | 2021-06-15 08:37 | HPC ---
[facility] [address] [place] [address] PAIN MANAGEMENT CONSULTATION Name: ZACKERY WALTON Room #: REG PRIETO CuiSaniaAmanuel.#: [id number] Admission: 06/14/21 Attend Phys: Jimmie Reina DO Discharge: Date of : 45 Report #: [id number] THIS REPORT FOR: cc: Rolando Louis,Jimmie Parekh DO ~ cc: Mina Borden MD DATE OF SERVICE: 06/14/2021 DATE OF SERVICE: 06/14/2021. CHIEF COMPLAINT: Low back pain, right lower extremity pain with paresthesias. HISTORY OF PRESENT ILLNESS: As you know, the patient is a very pleasant 76-year-old female referred to our service for low back pain, right lower extremity pain with paresthesias. The patient reports pain began in April 2020. Denies any injury or trauma. She had submitted to a L4-L5 TLIF with bilateral L4-L5 pedicle screw and haylee fixation with Dr. Mina Borden on 10/07/2019. After the surgery, her pain improved significantly. She was doing well until 04/2020 when her pain began to be experiencing low back radiating down the right leg in classic L5 dermatomal distribution. The patient sought evaluation and treatment, but received no benefit with conservative options. She further followed up with Dr. Borden who referred the patient on to our clinic to trial epidural injection under fluoroscopic guidance to address L5 radiculopathy. The patient reports today her pain is continuous and steady. She describes the pain as an aching, crushing numbness and tingling. Places current pain score 5-6/10 daily average at 5/10, worst pain has been is 10/10. The patient states that activity tends to exacerbate symptoms. Pain improves with sitting down and lying down and the use of Tylenol. Osteoarthritis. The patient does report right lower extremity cramping that occurs on a nightly basis. She has been referred to our service to discuss interventional treatment options to address lumbar radiculopathy. PAST MEDICAL HISTORY: 1. Hypertension. 2. Gastroesophageal reflux disease. 3. Degenerative joint disease. 4. Osteoarthritis. 5. Coronary artery disease. PAST SURGICAL HISTORY: 1. Percutaneous coronary artery grafting x 2. 2. Cholecystectomy. 3. Lumbar L4-L5 fusion. 4. Right total knee arthroplasty. [address] [address] PAIN MANAGEMENT CONSULTATION Name: ZACKERY WALTON ANN Room #: REG CLAriel Perez#: [id number] Admission: 06/14/21 Attend Phys: Jimmie Reina DO Discharge: Date of : 45 Report #: [id number] 5. Left knee arthroscopy. SOCIAL HISTORY: The patient denies tobacco, alcohol or IV illicit drug use. She is retired, retired about 15 years ago, not receiving workmen's compensation nor is she trying to obtain disability benefits. She is not in litigation in regards to pain. She is unaccompanied at today's visit. REVIEW OF SYSTEMS: Positive for weakness, eye disease, tinnitus, heart trouble with a percutaneous stenting, coronary artery disease, nocturia, rash and itching, numbness and tingling sensations involving the right lower extremity. All other review of systems negative per 12-point review of systems other than those listed in history of present illness. Pain impact score 51 of 70, severe interference of daily activities secondary to pain. ALLERGIES: HYDROCODONE, CELECOXIB, BRILINTA. CURRENT MEDICATIONS: Omeprazole 40 mg once a day, amlodipine 5 mg once a day, Mirapex 1.5 mg once a day, metoprolol 25 mg once a day, Repatha 140 mg subcu, Effient 10 mg once a day, hydrochlorothiazide 25 mg per day, aspirin 81 mg per day, gabapentin 300 mg b.i.d., multivitamin 1 tab per day. IMAGING: MRI of the lumbar spine obtained 05/26/2021 shows T12-L1 broad-based disk protrusion on the right extending the central canal up to 3 mm. Far right lateral endplate spurring, minimal facet arthropathy, mild right foraminal narrowing. Thecal sac is normal. L1-L2 diffuse disk bulge, facet arthropathy, tuvi-iw-eedaelkr facet changes, yqyu-fs-oobpvozz bilateral foraminal narrowing. Left lateral recess narrowing. Thecal sac measuring 1.1 cm. L2-L3 minimal disk bulge, endplate spurring, zlbz-kp-xtpyguuo facet, ligamentum flavum hypertrophy. No central canal stenosis, mild left foraminal narrowing. L3-L4 shows diffuse disk bulge extrusion type herniation migrating superiorly measuring 7 mm x 4 mm x 8 mm craniocaudal. Facet and ligamentum flavum hypertrophy, mild central canal stenosis, minimal foraminal narrowing. Thecal sac measures 9 mm. L4-L5 hardware artifact at the level, left facet ligamentum flavum hypertrophy, mild left neural foraminal narrowing, laminectomy defect on the right. Thecal sac measuring 12 mm. L5-S1 disk bulge, endplate spurring with facet hypertrophy. The hardware artifact at the level from the L5 pedicle screws. There is high-grade bilateral neural foraminal narrowing. Thecal sac measures 9 mm. PHYSICAL EXAMINATION: VITAL SIGNS: Blood pressure 139/78, pulse 64, respiratory rate 16 and unlabored. The patient is 97% on room air. Height 5 feet 6 inches tall, weight 240 pounds, BMI calculated 38.8. GENERAL: Well-developed, well-nourished, well-hydrated 76-year-old female appearing her stated age, placing current pain score 5-6/10. HEENT: Normocephalic, atraumatic. Pupils equal, round and reactive to light. Extraocular muscles are intact. Speech fluent. The patient deemed a good [facility] [address] [place] [address] PAIN MANAGEMENT CONSULTATION Name: ZACKERY WALTON Room #: REG [facility].#: [id number] Admission: 06/14/21 Attend Phys: Jimmie Reina DO Discharge: Date of : 45 Report #: [id number] historian. She is wearing a mask in compliance with COVID-19 regulations. LUNGS: Appear clear. No wheeze, rhonchi, no rales. CARDIOVASCULAR: Regular. No appreciable gallop, no rub. ABDOMEN: Soft, obese, normoactive bowel sounds. EXTREMITIES: Show no clubbing, no cyanosis, no edema. MUSCULOSKELETAL: Lower extremity strength equal and symmetrical 5/5 intact to light touch from L1 through S2 dermatomes. Deep tendon reflexes are diminished bilaterally, 1+/4 at Achilles and patella. Seated straight leg raising negative. Supine straight leg raising positive on the right. The patient has an antalgic gait favoring the right lower extremity over left. She has difficulty rising from a seated position. She has good range of motion of the hips and knees as well as ankles. Ankle clonus negative. Babinski is negative. Lumbar provocation testing is met with increased axial back pain. Well healed surgical scars, limitation of motion with forward flexion. ASSESSMENT: 1. Lumbar radiculopathy. 2. 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 3. Lumbosacral spondylosis with radiculopathy. 4. Lateral recess stenosis of lumbar spine. 5. Facet arthropathy, lumbar spine. 6. Chronic intractable pain. PLAN: 1. Based on today's physical exam, the history the patient provides, the descriptors the patient uses in regards to pain as well as the distribution of symptoms radiating down the right leg in L5 dermatomal distribution, the likely source of the patient's pain is lumbar radiculopathy. Review of the patient's MRI shows changes consistent with her symptoms at the L5-S1 level with high-grade foraminal stenosis noted at the level. This is the likely source of her right L5 radicular pain. We discussed with the patient the findings of this MRI and we correlated those findings to her current presentation of symptoms. After that discussion, we then discussed treatment options. The following was part of the conversation today on treatment course. We discussed physical therapy, stretching exercises and core strengthening as a treatment option. This could improve pain and reduce the cramping. The patient is experiencing at night. We discussed medication adjustments either increasing her current gabapentin dose, which is 300 mg twice a day to gain improved analgesic benefit. We discussed also rotating the medications either amitriptyline, nortriptyline, Cymbalta or Lyrica. We discussed lumbar epidural injections under fluoroscopic guidance for which the patient was referred to our clinic. We also discussed spinal cord stimulator therapy as a treatment option and ultimately surgical decompression of the foramen at the L5-S1 level. After reviewing the risks and benefits of all the proposed treatment options, the patient chose to begin with a lumbar epidural injection under fluoroscopic [address] [address] PAIN MANAGEMENT CONSULTATION Name: ZACKERY WALTON Room #: REG CLAriel Perez#: [id number] Admission: 06/14/21 Attend Phys: Jimmie Reina DO Discharge: Date of : 45 Report #: [id number] guidance. 2. The patient was advised due to third democrat payer restrictions authorization would have to be obtained before the patient could undergo an epidural injection to address L5 radiculopathy on the right side. We will begin that process immediately. We should have this available to the patient hopefully, in the next 7 days. 3. The patient will need to gain clearance from Dr. Tao, her electric motor assembler, to come off of her Effient in preparation for a lumbar epidural injection. Effient is 7 days off the medication for YOSEF guidelines. If the patient is able to come off the medication for the 7 days, we will have the patient return to undergo the epidural injection, assuming we can obtain that authorization in that timeframe. 4. We did discuss with the patient the possibility of adjusting medications at this time, the patient wishes to trial the epidural injection. If this is ineffective, she would then discuss medication management, spinal cord stimulator therapy and surgical options. I am in agreement with the patient on the treatment options she has made and will discuss whether or not medications are necessary in the future. 5. We wish to thank Dr. Mina Borden for the opportunity to see this patient in consultation. We will keep you apprised of her response to treatment as we address lumbar radicular symptoms involving the right lower extremity. Again, we wish to thank you for the opportunity to see the patient in consultation. <ELECTRONICALLY SIGNED> By: Jimmie Reina DO 06/15/21 0837 1418 2218 iJmmie Reina DO /kailey
== END ==
LOC: PAIN 12:16
PROVIDERS: ATTEND Anesthesiology Pain Medicine
DX: M47.27 Other spondylosis with radiculopathy, lumbosacral region (principal); M48.07 Spinal stenosis, lumbosacral region; G89.4 Chronic pain syndrome; Z79.899 Other long term (current) drug therapy; Z79.891 Long term (current) use of opiate analgesic

== ENCOUNTER → 2021-06-21 | Outpatient (CLI) | payer OTHER ==
[~2021-06-21] VITALS: Ht 167.6 cm; Wt 113.6 kg
[2021-06-21 08:09] VITALS: BP 159/78
--- NOTE | 2021-06-21 08:23 | NUR ---
Pain Clinic Assessment: 1. History of Osteoarthritis: Left Lower Extremity Right Lower Extremity SPINE History of Rheumatoid Arthritis: 2. Height: 5 ft. 6 in. 167.6 cm. Weight: 250.4 lb. oz. 113.581 kg. Patient's BMI: 40.4 3. Vital Signs: BP: 159/78 Pulse: 63 Resp: 18 Temp: 02 Sat: 97 ECG Mon: 4. Pain Intensity: 7 5. Fall Risk: Dizziness: N Needs help standing or walking: N Fallen in the last 3 months: N Fall risk comments: 6. Patient on Blood Thinner: EFFIENT 7. History of Hypertension: Y 8. Opioid Therapy greater than 6 weeks: N Opiate Contract Signed: 9. Risk Assessment Tool Provided: LOW 10. Functional Assessment Tool: 11. Recreational Drug Use: Never Drug Type: Tobacco Use: Never Smoker Tobacco Type: Amount or Packs/day: How Many Years: Alcohol Use: Yes Frequency: Special Occasions Quant:
--- NOTE | 2021-06-22 08:37 | HPC ---
[facility] [address] [place] [address] PAIN MANAGEMENT CONSULTATION Name: ZACKERY WALTON Room #: REG PRIETO Porter.#: [id number] Admission: 06/21/21 Attend Phys: Jimmie Reina DO Discharge: Date of : 45 Report #: [id number] THIS REPORT FOR: cc: Rolando Louis Steven F. DO Johnson, James E. DO ~ cc: Mina Borden MD DATE OF SERVICE: 06/21/2021 REFERRING PHYSICIAN: Dr. Mina Borden. CHIEF COMPLAINT: Low back pain, right lower extremity pain with paresthesias. HISTORY OF PRESENT ILLNESS: As you know, the patient is a very pleasant 76-year-old female referred to our service by her neurosurgeon, Dr. Mina Borden, to trial an epidural injection under fluoroscopic guidance. The patient has plans to undergo EMG next week to further assess the lumbar radicular symptoms to determine if surgical options would be necessary. She made today's appointment, having been able to come off her anticoagulant in preparation for a lumbar epidural injection. The patient is placing pain today at a level of about 7/10. She denies new injury/trauma or any changes in medication management since our last visit. ALLERGIES: HYDROCODONE, CELECOXIB, BRILINTA. CURRENT MEDICATIONS: Omeprazole, amlodipine, Mirapex, metoprolol, Repatha, hydrochlorothiazide, aspirin, gabapentin, multivitamin, Effient held past 7 days. SOCIAL HISTORY: The patient denies tobacco, alcohol or IV or illicit drug use. She retired about 15 years ago, unaccompanied today. IMAGING: No new imaging available. PHYSICAL EXAMINATION: VITAL SIGNS: Blood pressure 159/78, pulse 63, respiratory rate 18 and unlabored. The patient 97% on room air. Height 5 feet 6 inches tall, weight 250.4 pounds, BMI calculated 40.4. GENERAL: Well-developed, well-nourished, well-hydrated class III morbidly obese 76-year-old female appearing stated age, pain is rated around 7/10. HEENT: Normocephalic, atraumatic. Pupils equal, round and responsive. EXTREMITIES: Show no clubbing, no cyanosis. No appreciable edema. MUSCULOSKELETAL: Lower extremity strength equal and symmetrical 5/5, intact to light touch from L1 through S2 dermatomes. Seated straight leg raising negative. Supine straight leg raising is positive on the right. Gait appears mildly antalgic on the [place] [address] PAIN MANAGEMENT CONSULTATION Name: ZACKERY WALTON Room #: REG [facility] Ana#: [id number] Admission: 06/21/21 Attend Phys: Jimmie Reina DO Discharge: Date of : 45 Report #: [id number] ASSESSMENT: 1. Symptomatic lumbar radiculopathy. 2. 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 3. Lumbosacral spondylosis with radiculopathy. 4. Lateral recess stenosis of lumbar spine. 5. Facet arthropathy of lumbar spine. 6. Chronic intractable pain. PLAN: 1. The patient returns today in followup visit to undergo lumbar epidural injection under fluoroscopic guidelines per the request of her neurosurgeon, Dr. Mina Borden. The patient has discontinued her Effient over the past 7 days in preparation for the procedure. The patient has been advised risks and benefits of the procedure. These risks include but are not necessarily limited to, bleeding, bruising, infection, worsening pain, no relief of pain, also risk of temporary or permanent muscle weakness, temporary or permanent nerve damage, possible paralysis, post-dural puncture headache and . The patient states she understood and wished to proceed. 2. No medication changes made at today's visit. The patient will continue current medical therapy as prior prescribed. She will restart her Effient tonight and continue the Effient until our next visit. 3. We plan to see the patient back in followup visit in approximately 30 days. At that time, review efficacy of today's epidural injection and determine if next in the series of epidural injections would be recommended. PROCEDURE NOTE: DESCRIPTION OF PROCEDURE: Lumbar epidural steroid injection under fluoroscopic guidance. This is the first procedure of the first series that the patient is undergoing. After obtaining written consent, the patient was taken back to the fluoroscopy suite, placed in a prone position with pillow under the abdomen to decrease lumbar lordosis. The skin overlying the lumbosacral area was then prepped and draped in aseptic fashion. The lumbar vertebral interspace was then identified by AP fluoroscopy. The skin and subcutaneous tissue overlying the target site of injection was anesthetized with 3 mL 1% lidocaine. A 20-gauge 4.5-inch Tuohy needle was then advanced under fluoroscopic guidance towards the epidural space using a right paramedian approach. The epidural space was identified using loss of resistance to air technique. After negative aspiration for heme or cerebrospinal fluid, a total of 1 mL of Omnipaque was injected. A lumbar epidurogram was confirmed using both AP and lateral fluoroscopy. After negative aspiration for heme or cerebrospinal fluid, 5 mL of a solution containing 2 mL 40 mg per mL 80 mg total triamcinolone along with [address] [address] PAIN MANAGEMENT CONSULTATION Name: ZACKERY WALTON Room #: REG [facility]#: [id number] Admission: 06/21/21 Attend Phys: Jimmie Reina DO Discharge: Date of : 45 Report #: [id number] mL of lidocaine 1% was injected in increments. Contrast spread was noted posterior epidural space. The needle was then retracted approximately half way and needle tract flushed with 1 mL of 1% lidocaine. Needle was then removed. There were no apparent sensory or motor deficits in the lower extremity following the procedure. A sterile bandage was placed over the injection site. The heart rate, pulse, oximetry and blood pressure were continuously monitored after the procedure. There were no apparent complications. The patient tolerated the procedure well and was carefully escorted to the recovery room in stable condition. There were no apparent complications. After meeting discharge criteria, the patient was then discharged home. <ELECTRONICALLY SIGNED> By: Jimmie Reina DO 06/22/21 0837 0835 1300 Jimmie Reina DO /nt
== END | disposition home or self-care (01) ==
LOC: PAIN 07:00
PROVIDERS: ATTEND Anesthesiology Pain Medicine
DX: M47.27 Other spondylosis with radiculopathy, lumbosacral region (principal); M47.26 Other spondylosis with radiculopathy, lumbar region; M48.061 Spinal stenosis, lumbar region without neurogenic claudication; G89.29 Other chronic pain; Z98.890 Other specified postprocedural states; Z79.899 Other long term (current) drug therapy; Z88.8 Allergy status to other drugs, medicaments and biological substances

== ENCOUNTER → 2021-07-27 | Outpatient (CLI) | payer OTHER ==
[~2021-07-27] VITALS: Ht 167.6 cm; Wt 113.2 kg
[2021-07-27 09:09] VITALS: BP 154/94
--- NOTE | 2021-07-27 09:12 | NUR ---
Pain Clinic Assessment: 1. History of Osteoarthritis: Left Lower Extremity Right Lower Extremity SPINE History of Rheumatoid Arthritis: 2. Height: 5 ft. 6 in. 167.6 cm. Weight: 249.6 lb. oz. 113.218 kg. Patient's BMI: 40.3 3. Vital Signs: BP: 154/94 Pulse: 65 Resp: 18 Temp: 02 Sat: 95 ECG Mon: 4. Pain Intensity: 5 5. Fall Risk: Dizziness: N Needs help standing or walking: N Fallen in the last 3 months: N Fall risk comments: 6. Patient on Blood Thinner: EFFIENT 7. History of Hypertension: Y 8. Opioid Therapy greater than 6 weeks: N Opiate Contract Signed: 9. Risk Assessment Tool Provided: LOW 10. Functional Assessment Tool: 11. Recreational Drug Use: Never Drug Type: Tobacco Use: Never Smoker Tobacco Type: Amount or Packs/day: How Many Years: Alcohol Use: Yes Frequency: Special Occasions Quant: 1
--- NOTE | 2021-08-02 10:58 | HPC ---
[facility] [place] [address] PAIN MANAGEMENT CONSULTATION Name: ZACKERY WALTON Room #: REG PRIETO CuiSaniaAmanuel.#: [id number] Admission: 07/27/21 Attend Phys: Jimmie Reina DO Discharge: Date of : 45 Report #: [id number] THIS REPORT FOR: cc: Rolando Louis,Jimmie Parekh DO ~ cc: Mina Borden MD, Rolando Louis MD DATE OF SERVICE: 07/27/2021 CHIEF COMPLAINT: Low back pain, right lower extremity pain with paresthesias. HISTORY OF PRESENT ILLNESS: As you know, the patient is a very pleasant 76-year-old female referred to our service by her neurosurgeon, Dr. Mina Borden to trial an epidural injection under fluoroscopic guidance. The patient underwent a lumbar epidural injection at our last visit with improvement in functionality and about 50% overall improvement in pain. The patient states she is able to stand more erect, has been able to function more consistently throughout the day without pain development. She returns today in followup visit requesting to undergo the second in the series of lumbar epidural injections. The patient just saw her neurosurgeon last week who advised trial next in the series before looking towards surgical options assuming she gets good improvement in symptoms, continue epidural injections. She returns today having been off her anticoagulant in preparation for today's procedure. ALLERGIES: HYDROCODONE, CELECOXIB, BRILINTA. CURRENT MEDICATIONS: Omeprazole, amlodipine, Mirapex, metoprolol, Repatha, hydrochlorothiazide, aspirin, gabapentin, multivitamins, Effient held for the past 7 days per the patient's report. SOCIAL HISTORY: The patient denies tobacco, alcohol or IV or illicit drug use. She retired about 15 years ago, unaccompanied today. IMAGING: No new imaging available. PHYSICAL EXAMINATION: VITAL SIGNS: Blood pressure 154/94, pulse is 65, respiratory rate 18 and unlabored. The patient is 95% on room air. Height 5 feet 6 inches tall, weight 249.6 pounds, BMI calculated 40.3. GENERAL: Well-developed, well-nourished, well-hydrated class III, morbidly obese 76-year-old female appearing stated age, pain is rated today 5/10. HEENT: Normocephalic, atraumatic. Pupils equal, round and responsive. She is wearing a mask in compliance with COVID-19 regulations. EXTREMITIES: Show no clubbing, no cyanosis. No appreciable edema. MUSCULOSKELETAL: Lower extremity strength is symmetrical 5/5 intact to light touch again to L1 through S2 dermatomes. Straight leg raising is negative in [address] [address] PAIN MANAGEMENT CONSULTATION Name: ZACKERY WALTON ANN Room #: REG CLI ..#: [id number] Admission: 07/27/21 Attend Phys: Jimmie Reina DO Discharge: Date of : 45 Report #: [id number] the seated position, positive on the right in the supine position. This is limited by body habitus. Gait appears mildly antalgic favoring right lower extremity. Ankle clonus is negative. ASSESSMENT: 1. Symptomatic lumbar radiculopathy. 2. Marked neuroforaminal stenosis of lumbar spine. 3. Lumbosacral spondylosis with radiculopathy. 4. Lateral recess stenosis of lumbar spine. 5. Facet arthropathy of lumbar spine. 6. Chronic intractable pain. PLAN: 1. The patient returns today in followup visit having noted approximately 50% improvement in overall pain with the epidural injection under fluoroscopic guidance. Not only has she seen an improvement in pain, but she is also seeing improvement in overall function. She states she is able to stand for longer periods of time and walk longer distances. She is noting less interference of daily activities secondary to pain. She returns today per the request of Dr. Borden to undergo the second in the series of epidural injections. The patient has been advised risks and benefits of that procedure, states understood and wished to proceed. 2. No medication changes made at today's visit. The patient will continue current medical therapy as prior prescribed. 3. Plan to see the patient back in followup visit on an as needed basis for the third in the series of lumbar epidural injections. We are hopeful the patient will see good and prolonged benefit with today's epidural injection. PROCEDURE NOTE DESCRIPTION OF PROCEDURE: L5-S1 interlaminar epidural steroid injection under fluoroscopic guidance, This is the second procedure of the first series that the patient is undergoing. After obtaining written consent, the patient was taken back to the fluoroscopy suite, placed in a prone position with pillow under the abdomen to decrease lumbar lordosis. The skin overlying the lumbosacral area was then prepped and draped in aseptic fashion. The L5-S1 vertebral interspace was then identified by AP fluoroscopy. The skin and subcutaneous tissue overlying the target site of injection was anesthetized with 3 mL 1% lidocaine. A 20-gauge 4-1/2 inch Tuohy needle was then advanced under fluoroscopic guidance towards the epidural space using a paramedian approach. The epidural space was identified using loss of resistance to air technique. After negative aspiration for heme or cerebrospinal fluid, a total of 1 mL of Omnipaque was injected. A [address] [place] [address] PAIN MANAGEMENT CONSULTATION Name: ZACKERY WALTON ANN Room #: REG [facility].#: [id number] Admission: 07/27/21 Attend Phys: Jimmie Reina DO Discharge: Date of : 45 Report #: [id number] lumbar epidurogram was confirmed using both AP and lateral fluoroscopy. After negative aspiration for heme or cerebrospinal fluid, 5 mL of solution containing 2 mL 40 mg per mL 80 mg total triamcinolone along with 3 mL of lidocaine, 1% was injected in increments. Contrast spread was noted posterior epidural space. The needle was then retracted approximately half way and needle tract flushed with 1 mL of 1% lidocaine. Needle was then removed. There were no apparent sensory or motor deficits in the lower extremity following the procedure. A sterile bandage was placed over the injection site. The heart rate, pulse, oximetry and blood pressure were continuously monitored after the procedure. There were no apparent complications. The patient tolerated the procedure well and was carefully escorted to the recovery room in stable condition. There were no apparent complications. After meeting discharge criteria, the patient was then discharged home. <ELECTRONICALLY SIGNED> By: Jimmie Reina DO 08/02/21 1058 1003 1406 Jimmie Reina DO /nt
== END | disposition home or self-care (01) ==
LOC: PAIN 08:01
PROVIDERS: ATTEND Anesthesiology Pain Medicine
DX: M47.27 Other spondylosis with radiculopathy, lumbosacral region (principal); M47.26 Other spondylosis with radiculopathy, lumbar region; M48.061 Spinal stenosis, lumbar region without neurogenic claudication; G89.29 Other chronic pain; M19.90 Unspecified osteoarthritis, unspecified site; Z98.890 Other specified postprocedural states; Z79.899 Other long term (current) drug therapy; Z88.8 Allergy status to other drugs, medicaments and biological substances

== ENCOUNTER → 2021-09-07 | Outpatient (CLI) | payer OTHER | LOC: SJCVC 13:04 | PROVIDERS: ATTEND Internal Medicine Cardiovascular Disease | DX: I49.9 Cardiac arrhythmia, unspecified (principal); I25.10 Atherosclerotic heart disease of native coronary artery without angina pectoris; I10 Essential (primary) hypertension; E78.00 Pure hypercholesterolemia, unspecified; E78.5 Hyperlipidemia, unspecified; R60.9 Edema, unspecified; E11.9 Type 2 diabetes mellitus without complications; Z79.891 Long term (current) use of opiate analgesic; Z88.2 Allergy status to sulfonamides; Z88.8 Allergy status to other drugs, medicaments and biological substances; Z79.899 Other long term (current) drug therapy; Z72.89 Other problems related to lifestyle; Z95.818 Presence of other cardiac implants and grafts ==

== ENCOUNTER → 2021-09-27 | Outpatient (CLI) | payer OTHER ==
[~2021-09-27] VITALS: Ht 167.6 cm; Wt 112.8 kg
[~2021-09-27] MED LIST changes: +TRAMADOL 50 MG50 MG PO
[2021-09-27 12:41] VITALS: BP 151/77
--- NOTE | 2021-09-27 12:48 | NUR ---
Pain Clinic Assessment: 1. History of Osteoarthritis: Left Lower Extremity Right Lower Extremity SPINE History of Rheumatoid Arthritis: 2. Height: 5 ft. 6 in. 167.6 cm. Weight: 248.6 lb. oz. 112.764 kg. Patient's BMI: 40.1 3. Vital Signs: BP: 151/77 Pulse: 65 Resp: 18 Temp: 02 Sat: 97 ECG Mon: 4. Pain Intensity: 6 5. Fall Risk: Dizziness: N Needs help standing or walking: N Fallen in the last 3 months: N Fall risk comments: 6. Patient on Blood Thinner: None 7. History of Hypertension: Y 8. Opioid Therapy greater than 6 weeks: N Opiate Contract Signed: 9. Risk Assessment Tool Provided: LOW 10. Functional Assessment Tool: 11. Recreational Drug Use: Never Drug Type: Tobacco Use: Never Smoker Tobacco Type: Amount or Packs/day: How Many Years: Alcohol Use: Yes Frequency: Special Occasions Quant: 1
--- NOTE | 2021-09-28 08:39 | HPC ---
[facility] [place] [address] PAIN MANAGEMENT CONSULTATION Name: ZACKERY WALTON Room #: REG PRIETO CuiSaniaAmanuel.#: [id number] Admission: 09/27/21 Attend Phys: Jimmie Reina DO Discharge: Date of : 45 Report #: [id number] THIS REPORT FOR: cc: Rolando Louis,Jimmie Parekh DO ~ cc: Mina Borden MD, Rolando Louis MD DATE OF SERVICE: 09/27/2021 CHIEF COMPLAINT: Low back pain, right lower extremity pain with paresthesias. HISTORY OF PRESENT ILLNESS: As you know, the patient is a very pleasant 76-year-old female referred to our service by her neurosurgeon, Dr. Mina Borden to trial epidural injection under fluoroscopic guidance. The patient underwent the first in the series of requested lumbar epidural injections on 06/21/2021 with good benefit. She returned undergoing the second in the series of epidural injections on 07/27/2021. Most recent lumbar epidural injection gave improvement in symptoms of greater than 60%, lasting for the last 2 months. Unfortunately, symptoms have reoccurred. No inciting injury or trauma. She returns today for the third and final in the series of epidural injections in the 6 months. She is very pleased with response to treatment to date and is hopeful to see improvement similar to what she has seen with previous injections. The patient denies injury or trauma that may have led to symptom development. She has had no changes in her medication management that would preclude the patient from undergoing a lumbar epidural injection today. She has been off her anticoagulant for an extended period of time. She is no longer having to take that medication. ALLERGIES: HYDROCODONE, CELECOXIB, BRILINTA. CURRENT MEDICATIONS: Omeprazole, amlodipine, Mirapex, metoprolol, Repatha, hydrochlorothiazide, aspirin, gabapentin, and multivitamin. SOCIAL HISTORY: The patient denies tobacco, alcohol, or IV or illicit drug use. She is retired, retired about 15 years ago, unaccompanied today. IMAGING: No new imaging available. PHYSICAL EXAMINATION: VITAL SIGNS: Blood pressure 151/77, pulse 65, respiratory rate 18 and unlabored. The patient is 97% on room air. Height 5 feet 6 inches tall, weight 248.6 pounds, BMI calculated 40.1. GENERAL: Well-developed, well-nourished, well-hydrated class III, morbidly obese 76-year-old female appearing stated age. Pain is rated today 6/10. HEENT: Normocephalic, atraumatic. Pupils equal, round and responsive to light. Speech fluent. [address] [address] PAIN MANAGEMENT CONSULTATION Name: ZACKERY WALTON ANN Room #: REG CLI Carla#: [id number] Admission: 09/27/21 Attend Phys: Jimmie Reina DO Discharge: Date of : 45 Report #: [id number] EXTREMITIES: Show no clubbing, no cyanosis. No appreciable edema. MUSCULOSKELETAL: Lower extremity strength is symmetrical again today 5/5. Seated straight leg raising negative. Supine straight leg raising is positive on the right. Mando's test is negative. Modified Gaenslen's positive for axial low back pain. Gait is mildly antalgic, favoring right lower extremity over left. There are well-healed surgical scars of the lumbar spine. ASSESSMENT: 1. Symptomatic lumbar radiculopathy. 2. Marked neuroforaminal stenosis of lumbar spine. 3. Lumbosacral spondylosis with radiculopathy. 4. Lateral recess stenosis of lumbar spine. 5. Facet arthropathy of lumbar spine. 6. Chronic intractable pain. PLAN: 1. The patient returns today in followup visit, noticing a 60% improvement in overall pain with the epidural injection provided in July. This has lasted for nearly 2 months with recurrence of symptoms. She returns today for the third in the series of epidural injections per Dr. Mina Borden's request. The patient was advised risks and benefits of the procedure, states understood and wished to proceed. 2. No medication. 3. The patient was provided prescription of tramadol 50 mg dose 1 tab p.o. t.i.d. p.r.n. pain. I have given the patient #60 tablets. I advised the patient to take the medication only when pain is intolerable, not to rely on the medication prophylactically. She will watch for any side effects with medication including sleepiness, disorientation, confusion, mental slowing, or constipation with its use. If she notes side effects, discontinue immediately. Prescription was sent via e-scribe to local pharmacy. 4. See the patient back in followup visit on an as needed basis for the next in the series of lumbar epidural injections. The patient was advised the next available injection would be 6 months from her 06/21/2021 injection. PROCEDURE NOTE: DESCRIPTION OF PROCEDURE: L5-S1 right paramedian epidural steroid injection under fluoroscopic guidance. This is the 3rd procedure of the first series that the patient is undergoing. After obtaining written consent, the patient was taken back to the fluoroscopy suite, placed in a prone position with pillow under the abdomen to decrease lumbar lordosis. The skin overlying the lumbosacral area was then prepped and draped in aseptic fashion. The L5-S1 vertebral interspace was then identified by AP fluoroscopy. The skin and subcutaneous tissue overlying the target site [facility] [address] [place] [address] PAIN MANAGEMENT CONSULTATION Name: ZACKERY WALTON Room #: REG [facility].#: [id number] Admission: 09/27/21 Attend Phys: Jimmie Reina DO Discharge: Date of : 45 Report #: [id number] of injection was anesthetized with 3 mL 1% lidocaine. A 20-gauge 4-1/2 inch Tuohy needle was then advanced under fluoroscopic guidance towards the epidural space using a right paramedian approach. The epidural space was identified using loss of resistance to air technique. After negative aspiration for heme or cerebrospinal fluid, a total of 1 mL of Omnipaque was injected. A lumbar epidurogram was confirmed using both AP and lateral fluoroscopy. After negative aspiration for heme or cerebrospinal fluid, 5 mL of a solution containing 2 mL 40 mg per mL 80 mg total triamcinolone along with 3 mL of lidocaine 1% was injected in increments. Contrast spread was noted in the posterior epidural space. The needle was then retracted approximately half way and needle tract flushed with 1 mL of 1% lidocaine. Needle was then removed. There were no apparent sensory or motor deficits in the lower extremity following the procedure. A sterile bandage was placed over the injection site. The heart rate, pulse, oximetry and blood pressure were continuously monitored after the procedure. There were no apparent complications. The patient tolerated the procedure well and was carefully escorted to the recovery room in stable condition. There were no apparent complications. After meeting discharge criteria, the patient was then discharged home. <ELECTRONICALLY SIGNED> By: Jimmie Reina DO 09/28/21 0839 1502 [id number] Jimmie Reina DO /nt
== END | disposition home or self-care (01) ==
LOC: PAIN 09-23 08:52
PROVIDERS: ATTEND Anesthesiology Pain Medicine
DX: M47.27 Other spondylosis with radiculopathy, lumbosacral region (principal); M47.26 Other spondylosis with radiculopathy, lumbar region; M48.061 Spinal stenosis, lumbar region without neurogenic claudication; G89.29 Other chronic pain; Z98.890 Other specified postprocedural states; Z79.899 Other long term (current) drug therapy; Z88.8 Allergy status to other drugs, medicaments and biological substances

== ENCOUNTER → 2021-10-26 | Outpatient (CLI) | payer OTHER ==
[2021-10-26 10:56] LABS: INR 0.92; PROTIME 10.1 Seconds (10.5-12.1)
== END | disposition home or self-care (01) ==
LOC: RAD 08-16 10:19 → CAT 08-16 11:03 → RAD 08-16 12:04
PROVIDERS: ATTEND Neurological Surgery
DX: M54.59 Other low back pain (principal); M51.36 Other intervertebral disc degeneration, lumbar region; M41.86 Other forms of scoliosis, lumbar region; M47.26 Other spondylosis with radiculopathy, lumbar region; M79.604 Pain in right leg; M79.605 Pain in left leg; Z98.890 Other specified postprocedural states; Z79.899 Other long term (current) drug therapy; Z88.8 Allergy status to other drugs, medicaments and biological substances